=== PATIENT | female | born 2000 | race American Indian/Alaskan Native ===

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

== ENCOUNTER 2020-06-24 05:44 | Inpatient (IN) | payer OTHER ==
[~2020-06-24] VITALS: Ht 158.8 cm; Wt 92.1 kg
[~2020-06-24 05:44] MED LIST changes: +SINGULAIR10 MG PO
--- NOTE | 2020-06-24 14:43 | PR ---
[facility] [address] [facility] [place], [place] [address] Signed Progress Notes IP Datetime Report Generated by CPN: 06/24/2020 14:43 PROGRESS NOTES: [id number] Impression: Normal Progression of Labor; Reassuring Heart Rate Procedures: Intrauterine Pressure Catheter; Sterile Vag Exam Plan: Continue Present Management Informed Consent Obtain: Vaginal Delivery VITAL SIGNS: [id number] Vital Signs: Reviewed; Within Normal Limits EXAM: [id number] Dilatation: 3.0 Effacement: 80 Station: -2 Contractions: Rare MEMBRANES: [id number] Comments: Pt seen and examined. Doing well. Contractions more uncomfortable. Pitocin started per protocol. Not tracing CTXs well, so discussed IUPC and IUPC placed without difficulty. FETUS A: [id number] FHR Baseline: 140 Variability: Moderate 6-25bpm Accelerations: 15X15 Decelerations: None FHR Category: Category I Presentation: Vertex Comments on Fetus A: No evidence of metabolic acidosis FETUS B: [id number] Signing Physician: Janelle Jacobson DO Copies: ~ *Electronically Signed* 06/24/20 1443 JANELLE JACOBSON DO PATIENT NAME: ORNY BRANDON PROGRESS NOTE DATE OF : 00 PHYSICIAN: JANELLE JACOBSON DO RPT #: [id number] REPORT IS CONFIDENTIAL AND NOT TO BE RELEASED WITHOUT AUTHORIZATION
--- NOTE | 2020-06-24 17:14 | PR ---
[facility] [address] [facility] [place], [place] [address] Signed Progress Notes IP Datetime Report Generated by CPN: 06/24/2020 17:14 PROGRESS NOTES: [id number] Impression: Normal Progression of Labor; Reassuring Heart Rate Procedures: Intrauterine Pressure Catheter; Sterile Vag Exam Plan: Continue Present Management Informed Consent Obtain: Vaginal Delivery VITAL SIGNS: [id number] Vital Signs: Reviewed; Within Normal Limits EXAM: [id number] Dilatation: 4.0 Effacement: 80 Station: -2 Contractions: Rare MEMBRANES: [id number] Comments: Pt seen and examined. Doing well. Comfortable w/ epidural. CTXs adequate. Reviewed anticipated course of labor and delivery. All questions answered. Reviewed EFW 7#4oz. FETUS A: [id number] FHR Baseline: 140 Variability: Moderate 6-25bpm Accelerations: 15X15 Decelerations: None FHR Category: Category I Presentation: Vertex Comments on Fetus A: No evidence of metabolic acidosis FETUS B: [id number] Signing Physician: Janelle Jacobson DO Copies: ~ *Electronically Signed* 06/24/20 1714 JANELLE JACOBSON DO PATIENT NAME: RONY BRANDON PROGRESS NOTE DATE OF : 00 PHYSICIAN: JANELLE JACOBSON DO RPT #: [id number] REPORT IS CONFIDENTIAL AND NOT TO BE RELEASED WITHOUT AUTHORIZATION
--- NOTE | 2020-06-24 23:42 | PR ---
[facility] [address] [facility] [place], [place] [address] Signed Progress Notes IP Datetime Report Generated by CPN: 06/24/2020 23:42 PROGRESS NOTES: [id number] Impression: Normal Progression of Labor; Reassuring Heart Rate Procedures: Sterile Vag Exam Plan: Continue Present Management; Anticipate Vaginal Delivery Informed Consent Obtain: Vaginal Delivery VITAL SIGNS: [id number] Vital Signs: Reviewed; Within Normal Limits EXAM: [id number] Dilatation: 10.0 Effacement: 100 Station: 2 Contractions: Rare MEMBRANES: [id number] Comments: Pt seen and examined. Doing well. Feeling some increased pelvic pressure. On exam, now 10cm +2 station. Will start pushing and anticipate soon. FETUS A: [id number] FHR Baseline: 140 Variability: Moderate 6-25bpm Accelerations: 15X15 Decelerations: None FHR Category: Category I Presentation: Vertex Comments on Fetus A: No evidence of metabolic acidosis FETUS B: [id number] Signing Physician: Janelle Jacobson DO Copies: ~ *Electronically Signed* 06/24/20 6672 JANELLE JACOBSON DO PATIENT NAME: RONY BRANDON PROGRESS NOTE DATE OF : 00 PHYSICIAN: JANELLE JACOBSON DO RPT #: [id number] REPORT IS CONFIDENTIAL AND NOT TO BE RELEASED WITHOUT AUTHORIZATION
--- NOTE | 2020-06-26 08:17 | PR ---
[facility] [address] [facility] [place], [place] [address] Signed PP Progress Notes Datetime Report Generated by CPN: 06/26/2020 08:17 SUBJECTIVE: [id number] Pain: Within Normal Limits Nausea/Vomiting: Denies Flatus: Yes Bowel Movement: Yes Vital Signs: [id number] Vital Signs: Reviewed; Within Normal Limits EXAM: Ongoing Cardiovascular: Normal Respiratory: Normal Abdomen/Uterus: Normal Lochia: Normal Vulva/Perineum: Not Done Breasts: Not Done CVA Tenderness: Normal Extremities: Normal Incision: Not Applicable Progress: Normal Exam Comments: Fundus firm U-2 nontender IMPRESSION/PLAN/PROCEDURES: [id number] Impression: Normal Progression Plan: Discharge Progress Notes: Pt seen and examined. Doing well. Ambulating, voiding, and tolerating full diet. Pain and lochia minimal. Breast and bottlefeeding. No questions or concerns. Desires d/c home today. Undecided on contraceptive. Reviewed d/c instructions in detail. F/U 2 wks. Signing Physician: Janelle Jacobson DO Copies: ~ *Electronically Signed* 06/26/20 0817 JANELLE JACOBSON DO PATIENT NAME: RONY BRANDON PROGRESS NOTE DATE OF : 00 PHYSICIAN: JANELLE JACOBSON DO RPT #: [id number] REPORT IS CONFIDENTIAL AND NOT TO BE RELEASED WITHOUT AUTHORIZATION
== END 2020-06-26 13:15 | disposition home or self-care (01) | DRG 806 ==
LOC: FBC 05:44
PROVIDERS: ADMIT Obstetrics & Gynecology; ATTEND Obstetrics & Gynecology
PROC: 10H07YZ Insertion of Other Device into Products of Conception, Via Natural or Artificial Opening (ICD-10-PCS; 2020-06-24)
PROC: 10907ZC Drainage of Amniotic Fluid, Therapeutic from Products of Conception, Via Natural or Artificial Opening (ICD-10-PCS; 2020-06-24)
PROC: 00HU33Z Insertion of Infusion Device into Spinal Canal, Percutaneous Approach (ICD-10-PCS; 2020-06-24)
PROC: 3E0R3BZ Introduction of Anesthetic Agent into Spinal Canal, Percutaneous Approach (ICD-10-PCS; 2020-06-24)
PROC: 10E0XZZ Delivery of Products of Conception, External Approach (ICD-10-PCS; principal; 2020-06-25)
PROC: 0KQM0ZZ Repair Perineum Muscle, Open Approach (ICD-10-PCS; 2020-06-25)
DX: O99.824 Streptococcus B carrier state complicating childbirth (principal); D68.9 Coagulation defect, unspecified; Z37.0 Single live birth; Z3A.39 39 weeks gestation of pregnancy; O26.03 Excessive weight gain in pregnancy, third trimester; O99.52 Diseases of the respiratory system complicating childbirth; J45.909 Unspecified asthma, uncomplicated; O70.1 Second degree perineal laceration during delivery; O99.12 Other diseases of the blood and blood-forming organs and certain disorders involving the immune mechanism complicating childbirth; O99.02 Anemia complicating childbirth; D64.9 Anemia, unspecified; Z88.1 Allergy status to other antibiotic agents; Z79.899 Other long term (current) drug therapy
CPT/HCPCS: 01960; 85027; A9270; J2540; J2590; J2795; J3010; J7121

== ENCOUNTER 2021-06-19 10:45 | Emergency (ER) | payer OTHER ==
[~2021-06-19] VITALS: Ht 167.6 cm; Wt 83.3 kg
[2021-06-19] MEDS ORDERED: VENTOLIN HFA18 GM INH (12:58)
[2021-06-19] MEDS ORDERED: SINGULAIR10 MG PO (12:58)
[2021-06-19] MEDS ORDERED: ZYRTEC10 M3 PO (12:58)
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
== END 2021-06-19 13:30 | disposition short-term general hospital (02) ==
LOC: ED 10:45 → EDBD 10:46 → ED 13:30
DX: S06.6X9A Traumatic subarachnoid hemorrhage with loss of consciousness of unspecified duration, initial encounter (principal); S01.311A Laceration without foreign body of right ear, initial encounter; Z20.822 Contact with and (suspected) exposure to COVID-19; V43.52XA Car driver injured in collision with other type car in traffic accident, initial encounter
CPT/HCPCS: 31500; 36600; 70450; 71045; 71260; 72125; 74177; 80053; 81001; 82553; 82803; 83605; 83690; 84703; 85025; 86850; 86900; 86901; 90471; 90715; 94002; 99285-25; C9803; G0480; J0330; J1170; J2001; J2405; J2704; Q9967; U0003